=== PATIENT | male | born 1955 | race Caucasian/White ===

== ENCOUNTER 2018-02-15 11:13 | Inpatient (IN) | payer OTHER ==
[~2018-02-15 11:13] MED LIST: ETOMIDATE 20 MG INJ; SUCCINYLCHOLINE CHLORIDE 100 MG/5 ML SYG IV
[2018-02-15] MEDS ORDERED: NORepinephrine 8MG/250 ML (PMX 250 ML (11:33)
[2018-02-15] MEDS ORDERED: PROPOFOL 100 ML (11:47)
[2018-02-15] MEDS: NORepinephrine 8MG/250 ML (PMX 250 ML IV (12:00)
[2018-02-15 12:11] LABS: ADD MAN DIFF? NO
[2018-02-15] MEDS: SODIUM CHLORIDE 0.9% 1L BAG IV* (12:17)
[2018-02-15 12:18] LABS: ABNORMAL IP MESSAGE 1; BASOPHILS % 0.1 % (0.0-2.0); EOSINOPHILS # 0.1 10^3/ul (0.0-0.5); EOSINOPHILS % 0.7 % (0.0-7.0); HEMATOCRIT 20.4 % (42.0-52.0); MEAN CORPUSCULAR HEMOGLOBIN 30.2 pg (29.0-33.0); MEAN CORPUSCULAR HGB CONC 29.9 g/dl (32.0-37.0); MEAN PLATELET VOLUME 10.4 fl (7.4-10.4); MONOCYTE # 0.3 10^3/ul (0.3-0.9); MONOCYTES % 3.7 % (0.0-11.0); NEUTROPHIL # 6.2 10^3/ul (1.6-7.5); NEUTROPHILS % 72.1 % (39.0-77.0); PLATELET COUNT 136 10^3/UL (140-415); POSITIVE DIFF @See below; RED BLOOD COUNT 2.02 10^6/ul (4.70-6.10); RED CELL DISTRIBUTION WIDTH 15.9 % (11.5-14.5)
[2018-02-15 12:18] LABS: WHITE BLOOD COUNT 8.6 10^3/ul (4.8-10.8)
[2018-02-15 12:22] LABS: ADD UMIC YES; UR ASCORBIC ACID NEGATIVE (NEGATIVE); UR BILIRUBIN (Dip) NEGATIVE (NEGATIVE); UR BLOOD (Dip) NEGATIVE (NEGATIVE); UR CLARITY CLEAR (CLEAR); UR COLOR STRAW (YELLOW); UR GLUCOSE (Dip) 1+ mg/dL (NEGATIVE); UR KETONES (Dip) NEGATIVE (NEGATIVE); UR LEUKOCYTE ESTERASE (Dip) NEGATIVE Leu/ul (NEGATIVE); UR NITRITE (Dip) NEGATIVE (NEGATIVE); UR RBC 1 /HPF (0-5); UR SPECIFIC GRAVITY (Dip) 1.012 (1.003-1.030); UR TOTAL PROTEIN (Dip) 2+ mg/dl (NEGATIVE); UR UROBILINOGEN (Dip) NEGATIVE (NEGATIVE); UR WBC 1 /HPF (0-5)
[2018-02-15] MEDS: LEVOFLOXACIN 750MG/D5W (PMX) 150 ML IVPB (12:22)
[2018-02-15 12:30] LABS: HEMOGLOBIN 6.1 g/dl (14.0-18.0); PATH REVIEW? YES
[2018-02-15 12:32] LABS: ALANINE AMINOTRANSFERASE 25 IU/L (13-69); ALBUMIN 3.3 g/dl (3.3-4.9); ALBUMIN/GLOBULIN RATIO 0.66; ALKALINE PHOSPHATASE 113 IU/L (42-121); AMYLASE 63 U/L (11-123); ANION GAP 22 (8-16); ASPARTATE AMINO TRANSFERASE 24 IU/L (15-46); BILIRUBIN,INDIRECT 0.1 mg/dl (0-1.1); BILIRUBIN,TOTAL 0.1 mg/dl (0.2-1.3); BLOOD UREA NITROGEN 67 mg/dl (7-20); CALCIUM 12.8 mg/dl (8.4-10.2); CARBON DIOXIDE 15 mmol/L (21-31); CHLORIDE 118 mmol/L (97-110); CREATININE 4.85 mg/dl (0.61-1.24); GLUCOSE 209 mg/dl (70-220); LIPASE 28 U/L (23-300); SODIUM 149 mmol/L (135-144); TOTAL PROTEIN 8.3 g/dl (6.1-8.1)
[2018-02-15] MEDS: LORAZEPAM 2 MG INJ IV (12:32)
[2018-02-15 12:33] LABS: INR 1.72; PROTIME 20.5 Sec (11.9-14.9); PT RATIO 1.6
[2018-02-15] MEDS: PROPOFOL 100 ML IV ×2 (12:33→23:11)
[2018-02-15 12:42] LABS: AADO2 Arterial 234.7 mmHg (7.0-24.0); Allen Test ACCEPTAB; Arterial Base Excess -8.1 mmol/L (-3.0-3); Arterial Blood Gas Oxygen Sat 95.6 mmHG (95.0-98.0); Arterial COHb 0.2 % (0.0-3.0); Arterial Fraction of Oxyhgb 94.8 % (93.0-99.0); Arterial MetHb 0.6 % (0.0-1.5); Arterial Total Hemglobin 7.5 g/dl (12.0-18.0); Arterial pCO2 27.2 mmhg (35-45); MODE VENT - AC; Site Left Radial
[2018-02-15 12:43] LABS: TROPONIN-I < 0.010 ng/ml (0.000-0.120)
[2018-02-15 13:00] LABS: LACTIC ACID 6.4 mmol/L (0.5-2.0)
[2018-02-15] MEDS: ALBUTEROL 0.5% (NEB) 2.5 MG/0.5 ML AMP INH (14:07)
[2018-02-15] MEDS: VANCOMYCIN 1 GM (PMX) 250 ML IVPB (14:08)
[2018-02-15] MEDS: FUROSEMIDE 40 MG INJ IV (14:08)
[2018-02-15] MEDS: CA CHLORIDE 10% 10 ML SYRINGE IV (14:08)
[2018-02-15] MEDS: NA BICARBONATE 8.4% 50 ML SYG IV (14:09)
[2018-02-15] MEDS: MIDAZOLAM (DRIP) 50 mg/50 mL 50 ML IV (14:33)
[2018-02-15 14:47] LABS: LACTIC ACID 1.5 mmol/L (0.5-2.0)
[2018-02-15] MEDS ORDERED: DOCUSATE SODIUM 100 MG CAP PO (15:30)
[2018-02-15] MEDS ORDERED: ONDANSETRON 4 MG INJ IV (15:30)
[2018-02-15] MEDS ORDERED: MAGNESIUM HYDROXIDE 30ML CUP PO (15:30)
[2018-02-15] MEDS: NA POLYST SULFON 15 GM/60 ML BTL PO (15:57)
[2018-02-15] MEDS: INSULIN REGULAR, HUMAN 100 UNIT/1 ML 3ML VIAL IVP (16:36)
[2018-02-15] MEDS: DEXTROSE 50% 50 ML SYRINGE IV (16:37)
[2018-02-15] MEDS: AZTREONAM 0.5 GM in SOD CHLORIDE 0.9% 50 ML IV (16:43)
[2018-02-15 16:58] LABS: IMMEDIATE SPIN CROSSMATCH 1
[2018-02-15] MEDS ORDERED: GLUCOSE GEL 15 GRAM TUBE BUCCAL (18:00)
[2018-02-15] MEDS ORDERED: GLUCAGON 1 MG INJ IM (18:00)
[2018-02-15] MEDS ORDERED: GLUCOSE GEL 15 GRAM TUBE PO ×2 (18:00)
[2018-02-15] MEDS ORDERED: INSULIN ASPART [NOVOLOG] 3 ML PEN SC (18:00)
[2018-02-15 18:01] LABS: LACTIC ACID 4.9 mmol/L (0.5-2.0)
[2018-02-15] MEDS: NA POLYST SULFON 15 GM/60 ML BTL PR (18:03)
[2018-02-15 18:19] LABS: POTASSIUM,URINE RANDOM 54.3 mmol/L (25-125)
[2018-02-15 18:19] LABS: SODIUM,URINE RANDOM 45 mmol/L (30-90)
[2018-02-15 18:36] LABS: ADD UMIC YES; UR ASCORBIC ACID NEGATIVE (NEGATIVE); UR BILIRUBIN (Dip) NEGATIVE (NEGATIVE); UR BLOOD (Dip) 2+ mg/dL (NEGATIVE); UR CLARITY CLEAR (CLEAR); UR COLOR STRAW (YELLOW); UR GLUCOSE (Dip) 1+ mg/dL (NEGATIVE); UR KETONES (Dip) NEGATIVE (NEGATIVE); UR LEUKOCYTE ESTERASE (Dip) NEGATIVE Leu/ul (NEGATIVE); UR NITRITE (Dip) NEGATIVE (NEGATIVE); UR RBC 0 /HPF (0-5); UR SPECIFIC GRAVITY (Dip) 1.009 (1.003-1.030); UR TOTAL PROTEIN (Dip) 1+ mg/dl (NEGATIVE); UR UROBILINOGEN (Dip) NEGATIVE (NEGATIVE); UR WBC 5 /HPF (0-5)
[2018-02-15 18:45] LABS: ANION GAP 15 (8-16); BLOOD UREA NITROGEN 61 mg/dl (7-20); CALCIUM 12.3 mg/dl (8.4-10.2); CARBON DIOXIDE 17 mmol/L (21-31); CHLORIDE 121 mmol/L (97-110); CREATININE 4.17 mg/dl (0.61-1.24); GLUCOSE 318 mg/dl (70-220); SODIUM 149 mmol/L (135-144)
[2018-02-15 18:46] LABS: CREATININE,URINE RANDOM 14.47 mg/dl (20-370)
[2018-02-15 19:04] LABS: WHITE BLOOD COUNT 6.7 10^3/ul (4.8-10.8)
[2018-02-15 19:04] LABS: HEMATOCRIT 24.5 % (42.0-52.0); HEMOGLOBIN 7.7 g/dl (14.0-18.0); MEAN CORPUSCULAR HEMOGLOBIN 30.9 pg (29.0-33.0); MEAN CORPUSCULAR HGB CONC 31.4 g/dl (32.0-37.0); MEAN CORPUSCULAR VOLUME 98.4 fl (82.0-101.0); MEAN PLATELET VOLUME 10.4 fl (7.4-10.4); PLATELET COUNT 106 10^3/UL (140-415); POSITIVE DIFF @See below; RED BLOOD COUNT 2.49 10^6/ul (4.70-6.10); RED CELL DISTRIBUTION WIDTH 16.3 % (11.5-14.5)
[2018-02-15 19:08] LABS: ADD MAN DIFF? YES
[2018-02-15 19:13] LABS: IMMEDIATE SPIN CROSSMATCH 1 3
[2018-02-15 19:46] LABS: ANISOCYTOSIS 2+ (0-0); BAND NEUTROPHILS % (M) 16 % (0-4); GIANT THROMBO% (M) 1 % (0-0); LYMPHOCYTES #M 0.6 10^3/ul (0.8-2.9); LYMPHOCYTES % (M) 9 % (15-51); MICROCYTOSIS 1+ (0-0); MONOCYTES % (M) 1 % (0-11); PLATELET ESTIMATE DECREASED; POIKILOCYTOSIS 3+ (0-0); POLYCHROMASIA 3+ (0-0); SEG NEUT #M 5.1 10^3/ul (1.6-7.5); SEGMENTED NEUTROPHILS (M) % 75 % (39-77); SMUDGE%M 11 % (0-0)
[2018-02-15] MEDS: ATORVASTATIN 80 MG TAB PO (20:07)
[2018-02-15 20:51] LABS: OSMOLALITY,URINE 295 mOsm/kg (250-1200)
[2018-02-15] MEDS ORDERED: INSULIN LISPRO 12 UNIT SQ (21:00)
[2018-02-15] MEDS: INSULIN ASPART [NOVOLOG] 3 ML PEN SC (21:32)
[2018-02-15] MEDS ORDERED: AZTREONAM 2 GM in SOD CHLORIDE 0.9% 100 ML IVPB (22:00)
[2018-02-16] MEDS: MIDAZOLAM (DRIP) 50 mg/50 mL 50 ML IV ×2 (01:38→22:13)
[2018-02-16] MEDS: AZTREONAM 0.5 GM in SOD CHLORIDE 0.9% 50 ML IV ×3 (01:39→09:04)
[2018-02-16] MEDS: INSULIN ASPART [NOVOLOG] 3 ML PEN SC ×6 (01:43→21:00)
[2018-02-16 05:56] LABS: AADO2 Arterial 260.1 mmHg (7.0-24.0); Allen Test ACCEPTAB; Arterial Base Excess -4.4 mmol/L (-3.0-3); Arterial Blood Gas Oxygen Sat 91.2 mmHG (95.0-98.0); Arterial COHb 0.2 % (0.0-3.0); Arterial Fraction of Oxyhgb 90.7 % (93.0-99.0); Arterial HCO3 19.4 mmol/L (22.0-26.0); Arterial MetHb 0.4 % (0.0-1.5); Arterial Total Hemglobin 10.6 g/dl (12.0-18.0); Arterial pCO2 31.6 mmhg (35-45); MODE VENT - AC; Site Right Radial
[2018-02-16 05:57] LABS: ADD MAN DIFF? NO
[2018-02-16 06:03] LABS: ABNORMAL IP MESSAGE 1; BASOPHILS % 0.2 % (0.0-2.0); EOSINOPHILS % 0.7 % (0.0-7.0); HEMATOCRIT 24.6 % (42.0-52.0); HEMOGLOBIN 7.7 g/dl (14.0-18.0); LYMPHOCYTES # 0.4 10^3/ul (0.8-2.9); LYMPHOCYTES % 7.4 % (15.0-51.0); MEAN CORPUSCULAR HEMOGLOBIN 29.7 pg (29.0-33.0); MEAN CORPUSCULAR HGB CONC 31.3 g/dl (32.0-37.0); MEAN PLATELET VOLUME 10.1 fl (7.4-10.4); MONOCYTE # 0.2 10^3/ul (0.3-0.9); MONOCYTES % 3.9 % (0.0-11.0); NEUTROPHILS % 87.3 % (39.0-77.0); PLATELET COUNT 108 10^3/UL (140-415); POSITIVE DIFF @See below; RED BLOOD COUNT 2.59 10^6/ul (4.70-6.10); RED CELL DISTRIBUTION WIDTH 17.2 % (11.5-14.5)
[2018-02-16 06:03] LABS: WHITE BLOOD COUNT 5.7 10^3/ul (4.8-10.8)
[2018-02-16] MEDS: PROPOFOL 100 ML IV (06:16)
[2018-02-16 06:39] LABS: ALANINE AMINOTRANSFERASE 18 IU/L (13-69); ALBUMIN 3.1 g/dl (3.3-4.9); ALBUMIN/GLOBULIN RATIO 0.68; ALKALINE PHOSPHATASE 90 IU/L (42-121); ANION GAP 11 (8-16); ASPARTATE AMINO TRANSFERASE 52 IU/L (15-46); CALCIUM 12.7 mg/dl (8.4-10.2); CARBON DIOXIDE 22 mmol/L (21-31); CHLORIDE 126 mmol/L (97-110); CREATININE 4.15 mg/dl (0.61-1.24); GLUCOSE 128 mg/dl (70-220); MAGNESIUM 2.4 mg/dl (1.7-2.5); POTASSIUM 4.4 mmol/L (3.5-5.1); SODIUM 155 mmol/L (135-144); TOTAL PROTEIN 7.6 g/dl (6.1-8.1)
[2018-02-16] MEDS: PANTOPRAZOLE 40 MG INJ IV (06:49)
[2018-02-16 06:59] LABS: LACTATE DEHYDROGENASE 466 IU/L (313-618)
[2018-02-16 07:34] LABS: BLOOD UREA NITROGEN 58 mg/dl (7-20)
[2018-02-16 08:19] LABS: C-REACTIVE PROTEIN 47.4 mg/dl (0.0-0.9)
[2018-02-16] MEDS: SOD CHLORIDE 0.45% 1,000 ML IV (09:00)
[2018-02-16] MEDS: ASPIRIN 81 MG TAB PO (09:00)
[2018-02-16] MEDS: INSULIN GLARGINE [LANTus] (100 UNITS/ML) SYG SC (09:00)
[2018-02-16] MEDS: DEXTROSE 5% 1,000 ML IV (10:35)
[2018-02-16] MEDS: SOD CHLORIDE 0.9% 1,000 ML IV ×2 (10:35→10:53)
[2018-02-16 10:49] LABS: PHOSPHORUS 9.4 mg/dl (2.5-4.9)
[2018-02-16 13:23] LABS: ANION GAP 13 (8-16); BLOOD UREA NITROGEN 58 mg/dl (7-20); CALCIUM 11.8 mg/dl (8.4-10.2); CARBON DIOXIDE 20 mmol/L (21-31); CHLORIDE 125 mmol/L (97-110); CREATININE 4.03 mg/dl (0.61-1.24); GLUCOSE 90 mg/dl (70-220); POTASSIUM 5.1 mmol/L (3.5-5.1); SODIUM 153 mmol/L (135-144)
[2018-02-16 15:01] LABS: CREATININE, RANDOM URINE 19 mg/dL (20-370); MICROALBUMIN 9.7 mg/dL; MICROALBUMIN/CREATININE RATIO 511 (<30)
[2018-02-16] MEDS ORDERED: PENDING SANTYL ORDER FOR WOUND CARE XX (15:30)
[2018-02-16] MEDS: TAMSULOSIN (SR) 0.4 MG CAP PO (21:24)
[2018-02-16] MEDS: ATORVASTATIN 80 MG TAB PO (21:24)
[2018-02-16] MEDS: DEXTROSE 5%-0.45% NACL 1,000 ML IV (21:56)
[2018-02-17] MEDS: INSULIN ASPART [NOVOLOG] 3 ML PEN SC ×6 (01:00→21:00)
[2018-02-17 04:22] LABS: PROTEIN, TOTAL 6.9 g/dL (6.1-8.1)
[2018-02-17] MEDS: ACETAMINOPHEN 650 MG SUPP PR ×2 (04:30→22:08)
[2018-02-17 05:24] LABS: ADD MAN DIFF? NO
[2018-02-17 05:32] LABS: ABNORMAL IP MESSAGE 1; BASOPHILS % 0.2 % (0.0-2.0); EOSINOPHILS # 0.1 10^3/ul (0.0-0.5); EOSINOPHILS % 1.3 % (0.0-7.0); HEMATOCRIT 25.2 % (42.0-52.0); HEMOGLOBIN 7.8 g/dl (14.0-18.0); LYMPHOCYTES # 0.4 10^3/ul (0.8-2.9); MEAN CORPUSCULAR HEMOGLOBIN 30.1 pg (29.0-33.0); MEAN CORPUSCULAR VOLUME 97.3 fl (82.0-101.0); MEAN PLATELET VOLUME 10.4 fl (7.4-10.4); MONOCYTE # 0.2 10^3/ul (0.3-0.9); MONOCYTES % 2.5 % (0.0-11.0); NEUTROPHIL # 5.4 10^3/ul (1.6-7.5); NEUTROPHILS % 86.3 % (39.0-77.0); PLATELET COUNT 100 10^3/UL (140-415); POSITIVE DIFF @See below; RED BLOOD COUNT 2.59 10^6/ul (4.70-6.10); RED CELL DISTRIBUTION WIDTH 17.2 % (11.5-14.5)
[2018-02-17 05:32] LABS: WHITE BLOOD COUNT 6.3 10^3/ul (4.8-10.8)
[2018-02-17 05:50] LABS: LACTIC ACID 1.3 mmol/L (0.5-2.0)
[2018-02-17 06:14] LABS: ALANINE AMINOTRANSFERASE 22 IU/L (13-69); ALBUMIN 2.6 g/dl (3.3-4.9); ALKALINE PHOSPHATASE 92 IU/L (42-121); ANION GAP 9 (8-16); ASPARTATE AMINO TRANSFERASE 60 IU/L (15-46); BLOOD UREA NITROGEN 55 mg/dl (7-20); CALCIUM 11.2 mg/dl (8.4-10.2); CARBON DIOXIDE 20 mmol/L (21-31); CHLORIDE 127 mmol/L (97-110); GLUCOSE 109 mg/dl (70-220); MAGNESIUM 2.1 mg/dl (1.7-2.5); POTASSIUM 4.2 mmol/L (3.5-5.1); SODIUM 152 mmol/L (135-144); TOTAL PROTEIN 6.9 g/dl (6.1-8.1)
[2018-02-17] MEDS: DEXTROSE 5%-0.45% NACL 1,000 ML IV (06:18)
[2018-02-17 06:19] LABS: PHOSPHORUS 8.3 mg/dl (2.5-4.9)
[2018-02-17] MEDS: PANTOPRAZOLE 40 MG INJ IV (06:20)
[2018-02-17 08:32] LABS: AADO2 Arterial 335.4 mmHg (7.0-24.0); Arterial Base Excess -6.4 mmol/L (-3.0-3); Arterial Blood Gas Oxygen Sat 89.8 mmHG (95.0-98.0); Arterial COHb 0.3 % (0.0-3.0); Arterial Fraction of Oxyhgb 89.2 % (93.0-99.0); Arterial HCO3 17.7 mmol/L (22.0-26.0); Arterial MetHb 0.4 % (0.0-1.5); Arterial Total Hemglobin 8.2 g/dl (12.0-18.0); Arterial pCO2 29.7 mmhg (35-45); MODE VENT - AC; Site Right Brachial
[2018-02-17] MEDS: INSULIN GLARGINE [LANTus] (100 UNITS/ML) SYG SC (09:00)
[2018-02-17] MEDS: ASPIRIN 81 MG TAB PO (09:49)
[2018-02-17] MEDS: SOD CHLORIDE 0.9% 1,000 ML IV ×3 (10:28→23:59)
[2018-02-17] MEDS: AZTREONAM 0.5 GM in SOD CHLORIDE 0.9% 50 ML IV ×2 (10:57→21:14)
[2018-02-17] MEDS: LEVOFLOXACIN 500MG/D5W (PMX) 100 ML IVPB (14:05)
[2018-02-17 14:37] LABS: ANION GAP 13 (8-16); BLOOD UREA NITROGEN 53 mg/dl (7-20); CALCIUM 10.6 mg/dl (8.4-10.2); CARBON DIOXIDE 18 mmol/L (21-31); CHLORIDE 123 mmol/L (97-110); CREATININE 4.39 mg/dl (0.61-1.24); GLUCOSE 80 mg/dl (70-220); POTASSIUM 4.5 mmol/L (3.5-5.1); SODIUM 149 mmol/L (135-144)
[2018-02-17] MEDS ORDERED: COLLAGENASE 5 GM (UD JAR) TOP (16:00)
[2018-02-17 17:12] LABS: ALBUMIN 2.2 g/dL (3.8-4.8); ALPHA-1-GLOBULINS 0.5 g/dL (0.2-0.3); BETA 2 GLOBULINS 0.5 g/dL (0.2-0.5); BETA GLOBULINS 0.3 g/dL (0.4-0.6); GAMMA GLOBULINS 2.5 g/dL (0.8-1.7)
[2018-02-17] MEDS: ATORVASTATIN 80 MG TAB PO (21:08)
[2018-02-17] MEDS: TAMSULOSIN (SR) 0.4 MG CAP PO (21:08)
[2018-02-17] MEDS: PROPOFOL 100 ML IV (21:11)
[2018-02-17] MEDS: NORepinephrine 8MG/250 ML (PMX 250 ML IV (21:12)
[2018-02-17] MEDS: DEXTROSE 50% 50 ML SYRINGE IV (21:19)
[2018-02-17] MEDS: COLLAGENASE 5 GM (UD JAR) TOP (21:37)
[2018-02-18] MEDS: INSULIN ASPART [NOVOLOG] 3 ML PEN SC ×6 (01:00→20:55)
[2018-02-18] MEDS: MIDAZOLAM (DRIP) 50 mg/50 mL 50 ML IV (02:45)
[2018-02-18] MEDS: SOD CHLORIDE 0.9% 1,000 ML IV (03:04)
[2018-02-18] MEDS: ALBUMIN HUMAN 25% 100 ML IV ×2 (03:40→04:44)
[2018-02-18 04:25] LABS: ADD MAN DIFF? NO
[2018-02-18 04:29] LABS: ABNORMAL IP MESSAGE 1; BASOPHILS % 0.3 % (0.0-2.0); EOSINOPHILS # 0.1 10^3/ul (0.0-0.5); HEMATOCRIT 23.2 % (42.0-52.0); LYMPHOCYTES # 0.9 10^3/ul (0.8-2.9); LYMPHOCYTES % 12.6 % (15.0-51.0); MEAN CORPUSCULAR HEMOGLOBIN 30.3 pg (29.0-33.0); MEAN CORPUSCULAR HGB CONC 30.2 g/dl (32.0-37.0); MEAN CORPUSCULAR VOLUME 100.4 fl (82.0-101.0); MEAN PLATELET VOLUME 10.4 fl (7.4-10.4); MONOCYTE # 0.2 10^3/ul (0.3-0.9); MONOCYTES % 3.3 % (0.0-11.0); NEUTROPHILS % 82.3 % (39.0-77.0); PLATELET COUNT 92 10^3/UL (140-415); POSITIVE DIFF @See below; RED BLOOD COUNT 2.31 10^6/ul (4.70-6.10); RED CELL DISTRIBUTION WIDTH 17.7 % (11.5-14.5)
[2018-02-18 04:29] LABS: WHITE BLOOD COUNT 7.3 10^3/ul (4.8-10.8)
[2018-02-18 04:50] LABS: ALANINE AMINOTRANSFERASE 28 IU/L (13-69); ALBUMIN 2.3 g/dl (3.3-4.9); ALBUMIN/GLOBULIN RATIO 0.57; ALKALINE PHOSPHATASE 82 IU/L (42-121); ANION GAP 15 (8-16); ASPARTATE AMINO TRANSFERASE 68 IU/L (15-46); BILIRUBIN,INDIRECT 0.1 mg/dl (0-1.1); BILIRUBIN,TOTAL 0.1 mg/dl (0.2-1.3); BLOOD UREA NITROGEN 61 mg/dl (7-20); CALCIUM 9.7 mg/dl (8.4-10.2); CARBON DIOXIDE 15 mmol/L (21-31); CHLORIDE 124 mmol/L (97-110); CREATININE 4.92 mg/dl (0.61-1.24); GLUCOSE 69 mg/dl (70-220); MAGNESIUM 1.9 mg/dl (1.7-2.5); POTASSIUM 4.9 mmol/L (3.5-5.1); SODIUM 149 mmol/L (135-144); TOTAL PROTEIN 6.3 g/dl (6.1-8.1)
[2018-02-18] MEDS: PANTOPRAZOLE 40 MG INJ IV (06:31)
[2018-02-18] MEDS: DEXTROSE 5%-0.9% NACL 1,000 ML IV ×2 (07:02→20:54)
[2018-02-18] MEDS: ASPIRIN 81 MG TAB PO (07:56)
[2018-02-18] MEDS: COLLAGENASE 5 GM (UD JAR) TOP (07:56)
[2018-02-18 08:29] LABS: AADO2 Arterial 293.3 mmHg (7.0-24.0); Arterial Base Excess -10.4 mmol/L (-3.0-3); Arterial Blood Gas Oxygen Sat 96.9 mmHG (95.0-98.0); Arterial COHb 0 % (0.0-3.0); Arterial Fraction of Oxyhgb 96.7 % (93.0-99.0); Arterial MetHb 0.2 % (0.0-1.5); Arterial Total Hemglobin 8.5 g/dl (12.0-18.0); Arterial pCO2 30.9 mmhg (35-45); MODE VENT - AC; Site Right Brachial
[2018-02-18] MEDS: INSULIN GLARGINE [LANTus] (100 UNITS/ML) SYG SC (09:20)
[2018-02-18 11:09] LABS: HEMATOCRIT 27.1 % (42.0-52.0); HEMOGLOBIN 8.3 g/dl (14.0-18.0)
[2018-02-18] MEDS: CEFEPIME HCL 0.5 GM in SOD CHLORIDE 0.9% 50 ML IVPB (12:30)
[2018-02-18] MEDS ORDERED: VANCOMYCIN IV PER PHARMACY XX (15:30)
[2018-02-18] MEDS: VANCOMYCIN 1 GM 250 ML IVPB (16:48)
[2018-02-18] MEDS: ACETAMINOPHEN 650 MG SUPP PR (18:04)
[2018-02-18 18:22] LABS: PTH CALCIUM 9.7 mg/dL (8.6-10.3)
[2018-02-18 18:32] LABS: AADO2 Arterial 633.8 mmHg (7.0-24.0); Allen Test ACCEPTAB; Arterial Base Excess -12.6 mmol/L (-3.0-3); Arterial Blood Gas Oxygen Sat 69.4 mmHG (95.0-98.0); Arterial COHb 0.3 % (0.0-3.0); Arterial Fraction of Oxyhgb 68.7 % (93.0-99.0); Arterial HCO3 14.5 mmol/L (22.0-26.0); Arterial MetHb 0.7 % (0.0-1.5); Arterial pCO2 38.6 mmhg (35-45); MODE VENT - AC; Site Right Radial
[2018-02-18] MEDS ORDERED: NA BICARBONATE 8.4% 50 ML SYG (18:44)
[2018-02-18] MEDS: NA BICARBONATE 8.4% 50 ML SYG IV (19:47)
[2018-02-18] MEDS: TAMSULOSIN (SR) 0.4 MG CAP PO (20:54)
[2018-02-18] MEDS: FAMOTIDINE 20 MG TAB NGT (20:55)
[2018-02-18] MEDS: ATORVASTATIN 80 MG TAB PO (20:55)
[2018-02-19] MEDS: INSULIN ASPART [NOVOLOG] 3 ML PEN SC ×6 (01:00→21:34)
[2018-02-19 05:24] LABS: WHITE BLOOD COUNT 7.3 10^3/ul (4.8-10.8)
[2018-02-19 05:24] LABS: ABNORMAL IP MESSAGE 1; HEMATOCRIT 25.8 % (42.0-52.0); HEMOGLOBIN 7.8 g/dl (14.0-18.0); MEAN CORPUSCULAR HEMOGLOBIN 29.9 pg (29.0-33.0); MEAN CORPUSCULAR HGB CONC 30.2 g/dl (32.0-37.0); MEAN CORPUSCULAR VOLUME 98.9 fl (82.0-101.0); MEAN PLATELET VOLUME 10.6 fl (7.4-10.4); PLATELET COUNT 69 10^3/UL (140-415); POSITIVE DIFF @See below; RED BLOOD COUNT 2.61 10^6/ul (4.70-6.10); RED CELL DISTRIBUTION WIDTH 18.1 % (11.5-14.5)
[2018-02-19 05:46] LABS: ANION GAP 13 (8-16); BLOOD UREA NITROGEN 68 mg/dl (7-20); CALCIUM 8.7 mg/dl (8.4-10.2); CARBON DIOXIDE 17 mmol/L (21-31); CHLORIDE 122 mmol/L (97-110); CREATININE 5.72 mg/dl (0.61-1.24); GLUCOSE 137 mg/dl (70-220); MAGNESIUM 1.9 mg/dl (1.7-2.5); PHOSPHORUS 9.5 mg/dl (2.5-4.9); POTASSIUM 5.3 mmol/L (3.5-5.1); SODIUM 147 mmol/L (135-144)
[2018-02-19 05:54] LABS: IRON 20 ug/dl (35-150)
[2018-02-19 06:04] LABS: % IRON SATURATION 16 % SAT (22-52); TOTAL IRON BINDING CAPACITY 123 ug/dl (241-421)
[2018-02-19 07:14] LABS: BASOPHILS % 0.3 % (0.0-2.0); LYMPHOCYTES # 0.6 10^3/ul (0.8-2.9); LYMPHOCYTES % 8.7 % (15.0-51.0); MONOCYTE # 0.3 10^3/ul (0.3-0.9); MONOCYTES % 4.3 % (0.0-11.0)
[2018-02-19 07:22] LABS: RETICULOCYTE COUNT # 0.013 X10^6 (0.020-0.110); RETICULOCYTE COUNT % 0.5 % (0.5-1.5)
[2018-02-19 07:22] LABS: RETICULOCYTE RBC 2.66
[2018-02-19] MEDS: ACETAMINOPHEN 650 MG SUPP PR (07:37)
[2018-02-19] MEDS: CEFEPIME HCL 0.5 GM in SOD CHLORIDE 0.9% 50 ML IVPB (08:33)
[2018-02-19] MEDS: ASPIRIN 81 MG TAB PO (08:33)
[2018-02-19 08:41] LABS: LACTATE DEHYDROGENASE 454 IU/L (313-618)
[2018-02-19] MEDS: INSULIN GLARGINE [LANTus] (100 UNITS/ML) SYG SC (08:42)
[2018-02-19 08:46] LABS: AADO2 Arterial 619.7 mmHg (7.0-24.0); Allen Test ACCEPTAB; Arterial Base Excess -11.7 mmol/L (-3.0-3); Arterial Blood Gas Oxygen Sat 70.1 mmHG (95.0-98.0); Arterial COHb 0.2 % (0.0-3.0); Arterial Fraction of Oxyhgb 69.6 % (93.0-99.0); Arterial HCO3 16.8 mmol/L (22.0-26.0); Arterial MetHb 0.5 % (0.0-1.5); Arterial Total Hemglobin 8.4 g/dl (12.0-18.0); Arterial pCO2 51.1 mmhg (35-45); MODE VENT - AC; Site Right Radial
[2018-02-19] MEDS: COLLAGENASE 5 GM (UD JAR) TOP (08:50)
[2018-02-19] MEDS ORDERED: PHENYLephrine 20MG IN 250 ML 250 ML (08:51)
[2018-02-19 08:56] LABS: FOLATE > 20.0 ng/ml (2.8-20.0)
[2018-02-19] MEDS: SODIUM BICARBONATE (IV ADD) 150 MEQ in DEXTROSE 5% 1,000 ML IV ×3 (09:00→21:22)
[2018-02-19] MEDS: PHENYLephrine 40 MG in DEXTROSE 5% 496 ML IV (10:03)
[2018-02-19 10:32] LABS: NEUTROPHIL # 6.3 10^3/ul (1.6-7.5); NEUTROPHILS % 86.7 % (39.0-77.0)
[2018-02-19 10:54] LABS: HEPATITIS B SURFACE ANTIGEN NEGATIVE (NEGATIVE)
[2018-02-19 11:12] LABS: HEPATITIS B SURFACE ANTIBODY NEGATIVE (NEGATIVE)
[2018-02-19] MEDS: PHENYLephrine 80 MG in DEXTROSE 5% 242 ML IV ×3 (14:37→23:54)
[2018-02-19] MEDS: NORepinephrine 32 MG in DEXTROSE 5% 218 ML IV (14:38)
[2018-02-19] MEDS: VASOPRESSIN 60 UNIT in DEXTROSE 5% 57 ML IV (14:41)
[2018-02-19 15:55] LABS: AADO2 Arterial 421.8 mmHg (7.0-24.0); Allen Test ACCEPTAB; Arterial Blood Gas Oxygen Sat 99.2 mmHG (95.0-98.0); Arterial COHb 0.3 % (0.0-3.0); Arterial Fraction of Oxyhgb 98.4 % (93.0-99.0); Arterial HCO3 16.5 mmol/L (22.0-26.0); Arterial MetHb 0.5 % (0.0-1.5); Arterial Total Hemglobin 9.3 g/dl (12.0-18.0); Arterial pCO2 43.7 mmhg (35-45); MODE VENT - AC; Site Right Brachial
[2018-02-19] MEDS: ATORVASTATIN 80 MG TAB PO (21:22)
[2018-02-19] MEDS: FAMOTIDINE 20 MG TAB NGT (21:22)
[2018-02-19] MEDS: TAMSULOSIN (SR) 0.4 MG CAP PO (21:22)
[2018-02-20] MEDS: VASOPRESSIN 60 UNIT in DEXTROSE 5% 57 ML IV ×2 (00:30→11:38)
[2018-02-20] MEDS: INSULIN ASPART [NOVOLOG] 3 ML PEN SC ×6 (01:00→21:00)
[2018-02-20] MEDS: PHENYLephrine 80 MG in DEXTROSE 5% 242 ML IV ×4 (04:44→20:11)
[2018-02-20] MEDS: NORepinephrine 32 MG in DEXTROSE 5% 218 ML IV (05:10)
[2018-02-20 06:17] LABS: VANCOMYCIN,RANDOM 12.8 ug/ml
[2018-02-20 06:19] LABS: ANION GAP 15 (8-16); BLOOD UREA NITROGEN 47 mg/dl (7-20); CALCIUM 7.5 mg/dl (8.4-10.2); CARBON DIOXIDE 22 mmol/L (21-31); CHLORIDE 106 mmol/L (97-110); CREATININE 4.13 mg/dl (0.61-1.24); GLUCOSE 141 mg/dl (70-220); MAGNESIUM 1.6 mg/dl (1.7-2.5); PHOSPHORUS 6.6 mg/dl (2.5-4.9); SODIUM 139 mmol/L (135-144)
[2018-02-20] MEDS: SOD CHLORIDE 0.9% 1,000 ML IV ×2 (06:31→20:12)
[2018-02-20 06:55] LABS: ADD MAN DIFF? NO
[2018-02-20 06:57] LABS: ABNORMAL IP MESSAGE 1; BASOPHILS % 0.2 % (0.0-2.0); EOSINOPHILS # 0.1 10^3/ul (0.0-0.5); EOSINOPHILS % 1.2 % (0.0-7.0); HEMATOCRIT 26.8 % (42.0-52.0); HEMOGLOBIN 8.3 g/dl (14.0-18.0); LYMPHOCYTES # 0.3 10^3/ul (0.8-2.9); LYMPHOCYTES % 5.5 % (15.0-51.0); MEAN CORPUSCULAR HEMOGLOBIN 29.6 pg (29.0-33.0); MEAN CORPUSCULAR VOLUME 95.7 fl (82.0-101.0); MEAN PLATELET VOLUME 10.8 fl (7.4-10.4); MONOCYTE # 0.2 10^3/ul (0.3-0.9); MONOCYTES % 4.3 % (0.0-11.0); NEUTROPHIL # 4.4 10^3/ul (1.6-7.5); NEUTROPHILS % 87.4 % (39.0-77.0); POSITIVE DIFF @See below; RED CELL DISTRIBUTION WIDTH 17.5 % (11.5-14.5)
[2018-02-20 06:57] LABS: WHITE BLOOD COUNT 5.1 10^3/ul (4.8-10.8)
[2018-02-20 07:19] LABS: PLATELET COUNT 51 10^3/UL (140-415)
[2018-02-20] MEDS: MAGNESIUM SULFATE 2 GM/50 ML 50 ML IVPB (07:45)
[2018-02-20] MEDS: ASPIRIN 81 MG TAB PO (08:23)
[2018-02-20] MEDS: COLLAGENASE 5 GM (UD JAR) TOP (08:23)
[2018-02-20] MEDS: INSULIN GLARGINE [LANTus] (100 UNITS/ML) SYG SC (08:25)
[2018-02-20 08:44] LABS: AADO2 Arterial 589.9 mmHg (7.0-24.0); Allen Test ACCEPTAB; Arterial Base Excess -4.3 mmol/L (-3.0-3); Arterial Blood Gas Oxygen Sat 96.1 mmHG (95.0-98.0); Arterial COHb 0.3 % (0.0-3.0); Arterial Fraction of Oxyhgb 95.6 % (93.0-99.0); Arterial HCO3 20.8 mmol/L (22.0-26.0); Arterial MetHb 0.2 % (0.0-1.5); Arterial pCO2 37.9 mmhg (35-45); MODE VENT - AC; Site Right Radial
[2018-02-20] MEDS: CEFEPIME HCL 0.5 GM in SOD CHLORIDE 0.9% 50 ML IVPB (09:21)
[2018-02-20] MEDS: HEPARIN 1000 UNITS/ML 10 ML INJ CATHETER (13:17)
[2018-02-20] MEDS: VANCOMYCIN 1 GM 250 ML IVPB (14:18)
[2018-02-20] MEDS: DEXTROSE 50% 50 ML SYRINGE IV ×3 (14:22→21:10)
[2018-02-20] MEDS ORDERED: DIGOXIN 500 MCG INJ IV (16:30)
[2018-02-20 20:09] LABS: PRETRANSFUSION BILIRUBIN 0.1 mg/dl
[2018-02-20 20:10] LABS: POST-TRANSFUSION BILIRUBIN 0.5 mg/dl
[2018-02-20] MEDS: TAMSULOSIN (SR) 0.4 MG CAP PO (21:12)
[2018-02-20] MEDS: ATORVASTATIN 80 MG TAB PO (21:12)
[2018-02-20] MEDS: FAMOTIDINE 20 MG TAB NGT (21:12)
[2018-02-21] MEDS: PHENYLephrine 160 MG in DEXTROSE 5% 484 ML IV ×3 (00:09→17:50)
[2018-02-21] MEDS: VASOPRESSIN 60 UNIT in DEXTROSE 5% 57 ML IV ×3 (00:54→23:56)
[2018-02-21] MEDS: DEXTROSE 50% 50 ML SYRINGE IV (00:55)
[2018-02-21] MEDS: INSULIN ASPART [NOVOLOG] 3 ML PEN SC ×6 (01:00→20:47)
[2018-02-21] MEDS: DEXTROSE 5%-0.45% NACL 1,000 ML IV (02:42)
[2018-02-21] MEDS: NORepinephrine 32 MG in DEXTROSE 5% 218 ML IV ×2 (03:53→23:48)
[2018-02-21 05:36] LABS: WHITE BLOOD COUNT 8.1 10^3/ul (4.8-10.8)
[2018-02-21 05:36] LABS: ABNORMAL IP MESSAGE 1; HEMATOCRIT 26.7 % (42.0-52.0); HEMOGLOBIN 8.2 g/dl (14.0-18.0); MEAN CORPUSCULAR HEMOGLOBIN 29.6 pg (29.0-33.0); MEAN CORPUSCULAR HGB CONC 30.7 g/dl (32.0-37.0); MEAN CORPUSCULAR VOLUME 96.4 fl (82.0-101.0); MEAN PLATELET VOLUME 10.8 fl (7.4-10.4); PLATELET COUNT 39 10^3/UL (140-415); POSITIVE DIFF @See below; RED BLOOD COUNT 2.77 10^6/ul (4.70-6.10); RED CELL DISTRIBUTION WIDTH 17.2 % (11.5-14.5)
[2018-02-21 05:50] LABS: ADD MAN DIFF? YES
[2018-02-21 06:07] LABS: ANION GAP 13 (8-16); BLOOD UREA NITROGEN 42 mg/dl (7-20); CARBON DIOXIDE 21 mmol/L (21-31); CHLORIDE 104 mmol/L (97-110); CREATININE 3.79 mg/dl (0.61-1.24); GLUCOSE 134 mg/dl (70-220); MAGNESIUM 2.1 mg/dl (1.7-2.5); POTASSIUM 4.5 mmol/L (3.5-5.1); SODIUM 133 mmol/L (135-144)
[2018-02-21] MEDS ORDERED: DEXTROSE 50% 50 ML SYRINGE (07:00)
[2018-02-21 08:03] LABS: BAND NEUTROPHILS #M 2.7 10^3/ul (0.0-0.6); BAND NEUTROPHILS % (M) 34 % (0-4); EOSINOPHILS % (M) 3 % (0-7); LYMPHOCYTES #M 0.2 10^3/ul (0.8-2.9); LYMPHOCYTES % (M) 3 % (15-51); MONOCYTES % (M) 1 % (0-11); PLATELET ESTIMATE SIG DECREASED; POIKILOCYTOSIS 1+ (0-0); POLYCHROMASIA 2+ (0-0); SEGMENTED NEUTROPHILS (M) % 59 % (39-77); SMUDGE%M 2 % (0-0)
[2018-02-21] MEDS: ASPIRIN 81 MG TAB PO (08:34)
[2018-02-21] MEDS: COLLAGENASE 5 GM (UD JAR) TOP (08:34)
[2018-02-21] MEDS: CEFEPIME HCL 0.5 GM in SOD CHLORIDE 0.9% 50 ML IVPB (08:35)
[2018-02-21] MEDS: INSULIN GLARGINE [LANTus] (100 UNITS/ML) SYG SC (08:42)
[2018-02-21] MEDS: SOD CHLORIDE 0.9% 1,000 ML IV ×3 (08:42→22:30)
[2018-02-21 11:52] LABS: Arterial Base Excess -7.3 mmol/L (-3.0-3); Arterial Blood Gas Oxygen Sat 85.8 mmHG (95.0-98.0); Arterial COHb 0.1 % (0.0-3.0); Arterial Fraction of Oxyhgb 85.3 % (93.0-99.0); Arterial HCO3 19.8 mmol/L (22.0-26.0); Arterial MetHb 0.5 % (0.0-1.5); Arterial Total Hemglobin 12.3 g/dl (12.0-18.0); Arterial pCO2 46.1 mmhg (35-45); MODE VENT - AC; Site Right Brachial
[2018-02-21] MEDS: ACETYLCYSTEINE 20% 4 ML VIAL NEB ×2 (13:28→19:23)
[2018-02-21] MEDS: ALBUTEROL HFA 8 GM INHALER INH ×2 (13:37→19:24)
[2018-02-21 14:21] LABS: PTH INTACT 19 pg/mL (14-64)
[2018-02-21] MEDS: ATORVASTATIN 80 MG TAB PO (20:23)
[2018-02-21] MEDS: TAMSULOSIN (SR) 0.4 MG CAP PO (20:23)
[2018-02-21] MEDS: FAMOTIDINE 20 MG TAB NGT (20:23)
[2018-02-21] MEDS: SOD CHLORIDE 0.9% 250 ML IV* (21:59)
[2018-02-22] MEDS: INSULIN ASPART [NOVOLOG] 3 ML PEN SC ×6 (01:00→20:53)
[2018-02-22] MEDS: ACETYLCYSTEINE 20% 4 ML VIAL NEB ×4 (02:37→19:01)
[2018-02-22] MEDS: ALBUTEROL HFA 8 GM INHALER INH ×4 (02:38→19:02)
[2018-02-22] MEDS: SOD CHLORIDE 0.9% 1,000 ML IV ×2 (03:04→20:00)
[2018-02-22] MEDS: PHENYLephrine 160 MG in DEXTROSE 5% 484 ML IV ×3 (03:08→21:24)
[2018-02-22 06:33] LABS: ADD MAN DIFF? NO
[2018-02-22 06:43] LABS: ABNORMAL IP MESSAGE 1; BASOPHILS % 0.1 % (0.0-2.0); EOSINOPHILS # 0.1 10^3/ul (0.0-0.5); EOSINOPHILS % 0.8 % (0.0-7.0); HEMATOCRIT 23.5 % (42.0-52.0); HEMOGLOBIN 7.4 g/dl (14.0-18.0); LYMPHOCYTES # 0.2 10^3/ul (0.8-2.9); LYMPHOCYTES % 3.3 % (15.0-51.0); MEAN CORPUSCULAR HEMOGLOBIN 29.7 pg (29.0-33.0); MEAN CORPUSCULAR HGB CONC 31.5 g/dl (32.0-37.0); MEAN CORPUSCULAR VOLUME 94.4 fl (82.0-101.0); MEAN PLATELET VOLUME 9.8 fl (7.4-10.4); MONOCYTE # 0.2 10^3/ul (0.3-0.9); MONOCYTES % 3.1 % (0.0-11.0); NEUTROPHIL # 6.8 10^3/ul (1.6-7.5); PLATELET COUNT 59 10^3/UL (140-415); POSITIVE DIFF @See below; RED BLOOD COUNT 2.49 10^6/ul (4.70-6.10); RED CELL DISTRIBUTION WIDTH 17.2 % (11.5-14.5)
[2018-02-22 06:43] LABS: WHITE BLOOD COUNT 7.4 10^3/ul (4.8-10.8)
[2018-02-22 07:16] LABS: ANION GAP 17 (8-16); BLOOD UREA NITROGEN 46 mg/dl (7-20); CALCIUM 6.5 mg/dl (8.4-10.2); CARBON DIOXIDE 19 mmol/L (21-31); CHLORIDE 97 mmol/L (97-110); GLUCOSE 125 mg/dl (70-220); POTASSIUM 4.7 mmol/L (3.5-5.1); SODIUM 128 mmol/L (135-144)
[2018-02-22 07:40] LABS: NEUTROPHILS % 91.6 % (39.0-77.0)
[2018-02-22 08:22] LABS: PHOSPHORUS 6.7 mg/dl (2.5-4.9)
[2018-02-22 08:33] LABS: CREATININE 3.67 mg/dl (0.61-1.24)
[2018-02-22 09:04] LABS: AADO2 Arterial 584.7 mmHg (7.0-24.0); Allen Test ACCEPTAB; Arterial Base Excess -6.1 mmol/L (-3.0-3); Arterial Blood Gas Oxygen Sat 96.1 mmHG (95.0-98.0); Arterial COHb 0.3 % (0.0-3.0); Arterial Fraction of Oxyhgb 95.6 % (93.0-99.0); Arterial HCO3 19.7 mmol/L (22.0-26.0); Arterial MetHb 0.2 % (0.0-1.5); Arterial Total Hemglobin 8.4 g/dl (12.0-18.0); Arterial pCO2 40.3 mmhg (35-45); MODE VENT - AC; Site Right Radial
[2018-02-22] MEDS: ASPIRIN 81 MG TAB PO (09:37)
[2018-02-22] MEDS: CEFEPIME HCL 0.5 GM in SOD CHLORIDE 0.9% 50 ML IVPB (09:37)
[2018-02-22] MEDS: COLLAGENASE 5 GM (UD JAR) TOP (09:49)
[2018-02-22 10:38] LABS: ANISOCYTOSIS 1+ (0-0); BAND NEUTROPHILS #M 0.8 10^3/ul (0.0-0.6); BAND NEUTROPHILS % (M) 11 % (0-4); BASOPHILS % (M) 1 % (0-2); EOSINOPHILS % (M) 2 % (0-7); LYMPHOCYTES % (M) 1 % (15-51); MONOCYTE #M 0.2 10^3/ul (0.3-0.9); MONOCYTES % (M) 3 % (0-11); PLATELET ESTIMATE DECREASED; POIKILOCYTOSIS 1+ (0-0); SEG NEUT #M 6.1 10^3/ul (1.6-7.5); SEGMENTED NEUTROPHILS (M) % 82 % (39-77); SMUDGE%M 3 % (0-0)
[2018-02-22] MEDS ORDERED: ALBUMIN HUMAN 25% 100 ML IV ×2 (11:30→12:00)
[2018-02-22] MEDS: ALTEPLASE (CATHFLO) 2 MG INJ CATHETER (13:00)
[2018-02-22] MEDS: INSULIN GLARGINE [LANTus] (100 UNITS/ML) SYG SC (13:08)
[2018-02-22] MEDS: ALBUMIN HUMAN 25% 100 ML IV (14:45)
[2018-02-22 15:16] LABS: HAPTOGLOBIN 328 mg/dL (43-212)
[2018-02-22] MEDS: VASOPRESSIN 60 UNIT in DEXTROSE 5% 57 ML IV (15:43)
[2018-02-22] MEDS: BALSAM PERU/CASTOR OIL 60 GM TUBE TOP ×2 (16:29→20:53)
[2018-02-22] MEDS: SILVER SULFADIAZINE 1% 25 GM CR TOP (16:30)
[2018-02-22] MEDS: NORepinephrine 32 MG in DEXTROSE 5% 218 ML IV (17:53)
[2018-02-22] MEDS: ATORVASTATIN 80 MG TAB PO (20:52)
[2018-02-22] MEDS: FAMOTIDINE 20 MG TAB NGT (20:53)
[2018-02-22] MEDS: TAMSULOSIN (SR) 0.4 MG CAP PO (20:53)
[2018-02-23] MEDS: VASOPRESSIN 60 UNIT in DEXTROSE 5% 57 ML IV ×2 (00:30→12:30)
[2018-02-23] MEDS: INSULIN ASPART [NOVOLOG] 3 ML PEN SC ×6 (00:34→21:00)
[2018-02-23] MEDS: ALBUTEROL HFA 8 GM INHALER INH ×4 (01:00→19:30)
[2018-02-23] MEDS: ACETYLCYSTEINE 20% 4 ML VIAL NEB ×4 (01:00→19:31)
[2018-02-23] MEDS: SOD CHLORIDE 0.9% 1,000 ML IV ×2 (01:10→06:16)
[2018-02-23 05:47] LABS: ABNORMAL IP MESSAGE 1; HEMATOCRIT 22.8 % (42.0-52.0); HEMOGLOBIN 7.4 g/dl (14.0-18.0); MEAN CORPUSCULAR HEMOGLOBIN 30.3 pg (29.0-33.0); MEAN CORPUSCULAR HGB CONC 32.5 g/dl (32.0-37.0); MEAN CORPUSCULAR VOLUME 93.4 fl (82.0-101.0); MEAN PLATELET VOLUME 9.8 fl (7.4-10.4); POSITIVE DIFF @See below; RED BLOOD COUNT 2.44 10^6/ul (4.70-6.10); RED CELL DISTRIBUTION WIDTH 16.8 % (11.5-14.5)
[2018-02-23 05:47] LABS: WHITE BLOOD COUNT 6.6 10^3/ul (4.8-10.8)
[2018-02-23 06:16] LABS: ANION GAP 15 (8-16); BLOOD UREA NITROGEN 43 mg/dl (7-20); CALCIUM 6.3 mg/dl (8.4-10.2); CARBON DIOXIDE 20 mmol/L (21-31); CHLORIDE 97 mmol/L (97-110); GLUCOSE 102 mg/dl (70-220); POTASSIUM 4.1 mmol/L (3.5-5.1); SODIUM 128 mmol/L (135-144)
[2018-02-23 06:26] LABS: ADD MAN DIFF? YES; PLATELET COUNT 36 10^3/UL (140-415)
[2018-02-23 06:58] LABS: PHOSPHORUS 5.3 mg/dl (2.5-4.9)
[2018-02-23 06:58] LABS: CREATININE 3.53 mg/dl (0.61-1.24); MAGNESIUM 1.9 mg/dl (1.7-2.5)
[2018-02-23 07:32] LABS: VANCOMYCIN,RANDOM 13.9 ug/ml
[2018-02-23 07:40] LABS: ANISOCYTOSIS 1+ (0-0); BAND NEUTROPHILS #M 0.9 10^3/ul (0.0-0.6); BAND NEUTROPHILS % (M) 15 % (0-4); BURR CELLS 1+ (0-0); EOSINOPHILS % (M) 1 % (0-7); LYMPHOCYTES #M 0.1 10^3/ul (0.8-2.9); LYMPHOCYTES % (M) 3 % (15-51); MONOCYTE #M 0.4 10^3/ul (0.3-0.9); MONOCYTES % (M) 7 % (0-11); PLATELET ESTIMATE DECREASED; POIKILOCYTOSIS 1+ (0-0); SEG NEUT #M 4.9 10^3/ul (1.6-7.5); SEGMENTED NEUTROPHILS (M) % 74 % (39-77); SMUDGE%M 3 % (0-0)
[2018-02-23] MEDS: SOD CHLORIDE 0.9% 250 ML IV* ×2 (08:47→09:04)
[2018-02-23] MEDS: SILVER SULFADIAZINE 1% 25 GM CR TOP (09:21)
[2018-02-23] MEDS: ASPIRIN 81 MG TAB PO (09:21)
[2018-02-23] MEDS: BALSAM PERU/CASTOR OIL 60 GM TUBE TOP ×2 (09:21→21:09)
[2018-02-23] MEDS: CEFEPIME HCL 0.5 GM in SOD CHLORIDE 0.9% 50 ML IVPB (09:22)
[2018-02-23] MEDS: VANCOMYCIN 1 GM 250 ML IVPB (09:22)
[2018-02-23] MEDS: COLLAGENASE 5 GM (UD JAR) TOP (09:28)
[2018-02-23] MEDS: INSULIN GLARGINE [LANTus] (100 UNITS/ML) SYG SC (09:34)
[2018-02-23] MEDS: PHENYLephrine 160 MG in DEXTROSE 5% 484 ML IV (10:07)
[2018-02-23 11:37] LABS: IMMEDIATE SPIN CROSSMATCH 1 2
[2018-02-23 15:24] LABS: TYPE AND SCREEN 1
[2018-02-23] MEDS: TAMSULOSIN (SR) 0.4 MG CAP PO (21:00)
[2018-02-23] MEDS: DEXTROSE 50% 50 ML SYRINGE IV (21:08)
[2018-02-23] MEDS: FAMOTIDINE 20 MG TAB NGT (21:09)
[2018-02-23] MEDS: ATORVASTATIN 80 MG TAB PO (21:09)
[2018-02-24] MEDS: VASOPRESSIN 60 UNIT in DEXTROSE 5% 57 ML IV ×2 (00:30→12:03)
[2018-02-24] MEDS: INSULIN ASPART [NOVOLOG] 3 ML PEN SC ×6 (01:00→21:00)
[2018-02-24] MEDS: ALBUTEROL HFA 8 GM INHALER INH ×4 (01:09→19:58)
[2018-02-24] MEDS: ACETYLCYSTEINE 20% 4 ML VIAL NEB ×4 (01:15→19:58)
[2018-02-24] MEDS: DEXTROSE 50% 50 ML SYRINGE IV ×3 (01:58→17:20)
[2018-02-24 05:38] LABS: ADD MAN DIFF? NO
[2018-02-24 05:47] LABS: WHITE BLOOD COUNT 6.7 10^3/ul (4.8-10.8)
[2018-02-24 05:47] LABS: ABNORMAL IP MESSAGE 1; BASOPHILS % 0.2 % (0.0-2.0); EOSINOPHILS # 0.1 10^3/ul (0.0-0.5); EOSINOPHILS % 0.9 % (0.0-7.0); HEMATOCRIT 24.7 % (42.0-52.0); LYMPHOCYTES # 0.2 10^3/ul (0.8-2.9); LYMPHOCYTES % 2.6 % (15.0-51.0); MEAN CORPUSCULAR HGB CONC 32.4 g/dl (32.0-37.0); MEAN CORPUSCULAR VOLUME 92.5 fl (82.0-101.0); MEAN PLATELET VOLUME 10.2 fl (7.4-10.4); MONOCYTE # 0.4 10^3/ul (0.3-0.9); MONOCYTES % 5.4 % (0.0-11.0); NEUTROPHILS % 89.4 % (39.0-77.0); PLATELET COUNT 59 10^3/UL (140-415); POSITIVE DIFF @See below; RED BLOOD COUNT 2.67 10^6/ul (4.70-6.10); RED CELL DISTRIBUTION WIDTH 16.8 % (11.5-14.5)
[2018-02-24 06:16] LABS: ANION GAP 14 (8-16); BLOOD UREA NITROGEN 49 mg/dl (7-20); CALCIUM 6.2 mg/dl (8.4-10.2); CARBON DIOXIDE 20 mmol/L (21-31); CHLORIDE 99 mmol/L (97-110); GLUCOSE 79 mg/dl (70-220); MAGNESIUM 1.9 mg/dl (1.7-2.5); PHOSPHORUS 5.2 mg/dl (2.5-4.9); POTASSIUM 3.9 mmol/L (3.5-5.1); SODIUM 129 mmol/L (135-144)
[2018-02-24 06:28] LABS: CREATININE 3.73 mg/dl (0.61-1.24)
[2018-02-24] MEDS: INSULIN GLARGINE [LANTus] (100 UNITS/ML) SYG SC (09:00)
[2018-02-24] MEDS: COLLAGENASE 5 GM (UD JAR) TOP (09:26)
[2018-02-24] MEDS: ASPIRIN 81 MG TAB PO (09:26)
[2018-02-24] MEDS: SILVER SULFADIAZINE 1% 25 GM CR TOP (09:27)
[2018-02-24] MEDS: BALSAM PERU/CASTOR OIL 60 GM TUBE TOP ×2 (09:27→21:21)
[2018-02-24] MEDS: CEFEPIME HCL 0.5 GM in SOD CHLORIDE 0.9% 50 ML IVPB (10:24)
[2018-02-24] MEDS: SOD CHLORIDE 0.9% 1,000 ML IV (14:30)
[2018-02-24] MEDS: TAMSULOSIN (SR) 0.4 MG CAP PO (21:00)
[2018-02-24] MEDS: ATORVASTATIN 80 MG TAB PO (21:21)
[2018-02-24] MEDS: FAMOTIDINE 20 MG TAB NGT (21:21)
[2018-02-24] MEDS: NORepinephrine 32 MG in DEXTROSE 5% 218 ML IV (23:49)
[2018-02-25] MEDS: VASOPRESSIN 60 UNIT in DEXTROSE 5% 57 ML IV ×2 (00:30→12:30)
[2018-02-25] MEDS: INSULIN ASPART [NOVOLOG] 3 ML PEN SC ×6 (01:00→21:00)
[2018-02-25] MEDS: ACETYLCYSTEINE 20% 4 ML VIAL NEB ×4 (01:24→21:11)
[2018-02-25] MEDS: ALBUTEROL HFA 8 GM INHALER INH ×3 (01:24→21:10)
[2018-02-25 05:10] LABS: ADD MAN DIFF? NO
[2018-02-25] MEDS: DEXTROSE 50% 50 ML SYRINGE IV (05:10)
[2018-02-25 05:12] LABS: WHITE BLOOD COUNT 7.1 10^3/ul (4.8-10.8)
[2018-02-25 05:12] LABS: ABNORMAL IP MESSAGE 1; BASOPHILS % 0.3 % (0.0-2.0); EOSINOPHILS # 0.1 10^3/ul (0.0-0.5); EOSINOPHILS % 0.7 % (0.0-7.0); HEMATOCRIT 26.2 % (42.0-52.0); HEMOGLOBIN 8.3 g/dl (14.0-18.0); LYMPHOCYTES # 0.3 10^3/ul (0.8-2.9); LYMPHOCYTES % 4.2 % (15.0-51.0); MEAN CORPUSCULAR HEMOGLOBIN 29.4 pg (29.0-33.0); MEAN CORPUSCULAR HGB CONC 31.7 g/dl (32.0-37.0); MEAN CORPUSCULAR VOLUME 92.9 fl (82.0-101.0); MONOCYTE # 0.5 10^3/ul (0.3-0.9); MONOCYTES % 6.3 % (0.0-11.0); NEUTROPHIL # 6.2 10^3/ul (1.6-7.5); NEUTROPHILS % 86.8 % (39.0-77.0); PLATELET COUNT 51 10^3/UL (140-415); POSITIVE DIFF @See below; RED BLOOD COUNT 2.82 10^6/ul (4.70-6.10); RED CELL DISTRIBUTION WIDTH 17.2 % (11.5-14.5)
[2018-02-25 05:37] LABS: ANION GAP 13 (8-16); BLOOD UREA NITROGEN 56 mg/dl (7-20); CALCIUM 6.2 mg/dl (8.4-10.2); CARBON DIOXIDE 20 mmol/L (21-31); CHLORIDE 100 mmol/L (97-110); GLUCOSE 71 mg/dl (70-220); PHOSPHORUS 5.5 mg/dl (2.5-4.9); POTASSIUM 3.8 mmol/L (3.5-5.1); SODIUM 129 mmol/L (135-144)
[2018-02-25 05:43] LABS: CREATININE 3.83 mg/dl (0.61-1.24)
[2018-02-25] MEDS: CEFEPIME HCL 0.5 GM in SOD CHLORIDE 0.9% 50 ML IVPB (08:58)
[2018-02-25] MEDS: ASPIRIN 81 MG TAB PO (08:58)
[2018-02-25] MEDS: SILVER SULFADIAZINE 1% 25 GM CR TOP (08:59)
[2018-02-25] MEDS: BALSAM PERU/CASTOR OIL 60 GM TUBE TOP ×2 (08:59→21:49)
[2018-02-25] MEDS: INSULIN GLARGINE [LANTus] (100 UNITS/ML) SYG SC (09:00)
[2018-02-25] MEDS: COLLAGENASE 5 GM (UD JAR) TOP (09:38)
[2018-02-25] MEDS: DEXTROSE 5%-0.9% NACL 1,000 ML IV (11:22)
[2018-02-25] MEDS: SOD CHLORIDE 0.9% 1,000 ML IV (14:30)
[2018-02-25] MEDS: NORepinephrine 32 MG in DEXTROSE 5% 218 ML IV (20:32)
[2018-02-25] MEDS: PHENYLephrine 160 MG in DEXTROSE 5% 484 ML IV (20:40)
[2018-02-25] MEDS: TAMSULOSIN (SR) 0.4 MG CAP PO (21:00)
[2018-02-25] MEDS: ATORVASTATIN 80 MG TAB PO (23:08)
[2018-02-25] MEDS: FAMOTIDINE 20 MG TAB NGT (23:08)
[2018-02-26] MEDS: VASOPRESSIN 60 UNIT in DEXTROSE 5% 57 ML IV ×2 (00:30→12:30)
[2018-02-26] MEDS: INSULIN ASPART [NOVOLOG] 3 ML PEN SC ×6 (01:00→21:03)
[2018-02-26] MEDS: ALBUTEROL HFA 8 GM INHALER INH ×4 (01:24→20:49)
[2018-02-26] MEDS: ACETYLCYSTEINE 20% 4 ML VIAL NEB ×4 (01:24→20:50)
[2018-02-26 05:33] LABS: ADD MAN DIFF? NO
[2018-02-26 05:45] LABS: WHITE BLOOD COUNT 6.8 10^3/ul (4.8-10.8)
[2018-02-26 05:45] LABS: ABNORMAL IP MESSAGE 1; BASOPHILS % 0.3 % (0.0-2.0); EOSINOPHILS % 0.4 % (0.0-7.0); HEMATOCRIT 27.1 % (42.0-52.0); HEMOGLOBIN 8.8 g/dl (14.0-18.0); LYMPHOCYTES # 0.4 10^3/ul (0.8-2.9); LYMPHOCYTES % 5.7 % (15.0-51.0); MEAN CORPUSCULAR HEMOGLOBIN 30.1 pg (29.0-33.0); MEAN CORPUSCULAR HGB CONC 32.5 g/dl (32.0-37.0); MEAN CORPUSCULAR VOLUME 92.8 fl (82.0-101.0); MEAN PLATELET VOLUME 11.1 fl (7.4-10.4); MONOCYTE # 0.7 10^3/ul (0.3-0.9); MONOCYTES % 9.5 % (0.0-11.0); NEUTROPHIL # 5.6 10^3/ul (1.6-7.5); NEUTROPHILS % 81.8 % (39.0-77.0); PLATELET COUNT 36 10^3/UL (140-415); POSITIVE DIFF @See below; RED BLOOD COUNT 2.92 10^6/ul (4.70-6.10); RED CELL DISTRIBUTION WIDTH 17.3 % (11.5-14.5)
[2018-02-26 06:35] LABS: ANION GAP 12 (8-16); BLOOD UREA NITROGEN 45 mg/dl (7-20); CALCIUM 6.5 mg/dl (8.4-10.2); CARBON DIOXIDE 22 mmol/L (21-31); CHLORIDE 100 mmol/L (97-110); CREATININE 3.43 mg/dl (0.61-1.24); GLUCOSE 111 mg/dl (70-220); PHOSPHORUS 4.6 mg/dl (2.5-4.9); POTASSIUM 3.7 mmol/L (3.5-5.1); SODIUM 130 mmol/L (135-144)
[2018-02-26] MEDS: ASPIRIN 81 MG TAB PO (08:22)
[2018-02-26] MEDS: CEFEPIME HCL 0.5 GM in SOD CHLORIDE 0.9% 50 ML IVPB (08:22)
[2018-02-26] MEDS: BALSAM PERU/CASTOR OIL 60 GM TUBE TOP ×2 (08:23→21:05)
[2018-02-26] MEDS: SILVER SULFADIAZINE 1% 25 GM CR TOP (08:23)
[2018-02-26] MEDS: COLLAGENASE 5 GM (UD JAR) TOP (09:00)
[2018-02-26] MEDS: NORepinephrine 32 MG in DEXTROSE 5% 218 ML IV (11:03)
[2018-02-26] MEDS: DEXTROSE 5%-0.9% NACL 1,000 ML IV ×2 (12:11→13:48)
[2018-02-26] MEDS: SOD CHLORIDE 0.9% 1,000 ML IV (14:30)
[2018-02-26] MEDS: TAMSULOSIN (SR) 0.4 MG CAP PO (20:57)
[2018-02-26] MEDS: ATORVASTATIN 80 MG TAB PO (20:57)
[2018-02-26] MEDS: FAMOTIDINE 20 MG TAB NGT (20:57)
[2018-02-27] MEDS: VASOPRESSIN 60 UNIT in DEXTROSE 5% 57 ML IV ×2 (00:30→12:30)
[2018-02-27] MEDS: INSULIN ASPART [NOVOLOG] 3 ML PEN SC ×6 (01:44→21:28)
[2018-02-27] MEDS: ACETYLCYSTEINE 20% 4 ML VIAL NEB ×2 (01:56→07:55)
[2018-02-27] MEDS: ALBUTEROL HFA 8 GM INHALER INH ×4 (01:56→20:44)
[2018-02-27] MEDS: NORepinephrine 32 MG in DEXTROSE 5% 218 ML IV ×2 (04:45→23:40)
[2018-02-27 05:10] LABS: ADD MAN DIFF? NO
[2018-02-27 05:32] LABS: ABNORMAL IP MESSAGE 1; BASOPHILS % 0.3 % (0.0-2.0); EOSINOPHILS % 0.4 % (0.0-7.0); HEMATOCRIT 25.5 % (42.0-52.0); HEMOGLOBIN 8.1 g/dl (14.0-18.0); LYMPHOCYTES # 0.7 10^3/ul (0.8-2.9); LYMPHOCYTES % 8.7 % (15.0-51.0); MEAN CORPUSCULAR HEMOGLOBIN 30.3 pg (29.0-33.0); MEAN CORPUSCULAR HGB CONC 31.8 g/dl (32.0-37.0); MEAN CORPUSCULAR VOLUME 95.5 fl (82.0-101.0); MEAN PLATELET VOLUME 10.5 fl (7.4-10.4); MONOCYTE # 0.9 10^3/ul (0.3-0.9); MONOCYTES % 11.9 % (0.0-11.0); NEUTROPHIL # 5.9 10^3/ul (1.6-7.5); NEUTROPHILS % 76.9 % (39.0-77.0); POSITIVE DIFF @See below; RED BLOOD COUNT 2.67 10^6/ul (4.70-6.10); RED CELL DISTRIBUTION WIDTH 17.5 % (11.5-14.5)
[2018-02-27 05:32] LABS: WHITE BLOOD COUNT 7.7 10^3/ul (4.8-10.8)
[2018-02-27 06:03] LABS: ANION GAP 12 (8-16); BLOOD UREA NITROGEN 57 mg/dl (7-20); CALCIUM 6.7 mg/dl (8.4-10.2); CARBON DIOXIDE 22 mmol/L (21-31); CHLORIDE 101 mmol/L (97-110); GLUCOSE 155 mg/dl (70-220); MAGNESIUM 2.1 mg/dl (1.7-2.5); PHOSPHORUS 5.6 mg/dl (2.5-4.9); POTASSIUM 4.1 mmol/L (3.5-5.1); SODIUM 131 mmol/L (135-144)
[2018-02-27 06:16] LABS: PLATELET COUNT 35 10^3/UL (140-415)
[2018-02-27 06:53] LABS: CREATININE 3.67 mg/dl (0.61-1.24)
[2018-02-27] MEDS: ASPIRIN 81 MG TAB PO (09:10)
[2018-02-27] MEDS: BALSAM PERU/CASTOR OIL 60 GM TUBE TOP ×2 (09:10→21:17)
[2018-02-27] MEDS: CEFEPIME HCL 0.5 GM in SOD CHLORIDE 0.9% 50 ML IVPB (09:10)
[2018-02-27] MEDS: COLLAGENASE 5 GM (UD JAR) TOP (09:11)
[2018-02-27] MEDS: SILVER SULFADIAZINE 1% 25 GM CR TOP (09:11)
[2018-02-27] MEDS: PHENYLephrine 160 MG in DEXTROSE 5% 484 ML IV ×2 (09:16→23:41)
[2018-02-27] MEDS: VANCOMYCIN 1 GM 250 ML IVPB (10:57)
[2018-02-27] MEDS: SOD CHLORIDE 0.9% 1,000 ML IV (13:31)
[2018-02-27 17:12] LABS: TYPE AND SCREEN 1
[2018-02-27] MEDS: SOD CHLORIDE 0.9% 250 ML IV* (17:20)
[2018-02-27] MEDS: TAMSULOSIN (SR) 0.4 MG CAP PO (21:00)
[2018-02-27] MEDS: ALBUMIN HUMAN 25% 100 ML IV (21:38)
[2018-02-27] MEDS: HEPARIN 1000 UNITS/ML 10 ML INJ CATHETER (22:47)
[2018-02-27] MEDS: ATORVASTATIN 80 MG TAB PO (23:39)
[2018-02-27] MEDS: FAMOTIDINE 20 MG TAB NGT (23:39)
[2018-02-28] MEDS: VASOPRESSIN 60 UNIT in DEXTROSE 5% 57 ML IV ×2 (00:30→12:08)
[2018-02-28] MEDS: INSULIN ASPART [NOVOLOG] 3 ML PEN SC ×6 (01:12→21:00)
[2018-02-28 05:28] LABS: ADD MAN DIFF? NO
[2018-02-28 05:39] LABS: WHITE BLOOD COUNT 6.9 10^3/ul (4.8-10.8)
[2018-02-28 05:39] LABS: ABNORMAL IP MESSAGE 1; BASOPHILS % 0.3 % (0.0-2.0); EOSINOPHILS # 0.1 10^3/ul (0.0-0.5); EOSINOPHILS % 0.7 % (0.0-7.0); HEMATOCRIT 23.2 % (42.0-52.0); HEMOGLOBIN 7.4 g/dl (14.0-18.0); LYMPHOCYTES # 0.4 10^3/ul (0.8-2.9); LYMPHOCYTES % 5.5 % (15.0-51.0); MEAN CORPUSCULAR HEMOGLOBIN 30.7 pg (29.0-33.0); MEAN CORPUSCULAR HGB CONC 31.9 g/dl (32.0-37.0); MEAN CORPUSCULAR VOLUME 96.3 fl (82.0-101.0); MEAN PLATELET VOLUME 10.9 fl (7.4-10.4); MONOCYTES % 13.7 % (0.0-11.0); NEUTROPHIL # 5.4 10^3/ul (1.6-7.5); NEUTROPHILS % 78.4 % (39.0-77.0); PLATELET COUNT 60 10^3/UL (140-415); POSITIVE DIFF @See below; RED BLOOD COUNT 2.41 10^6/ul (4.70-6.10); RED CELL DISTRIBUTION WIDTH 17.4 % (11.5-14.5)
[2018-02-28 05:54] LABS: ANION GAP 12 (8-16); BLOOD UREA NITROGEN 41 mg/dl (7-20); CALCIUM 7.3 mg/dl (8.4-10.2); CARBON DIOXIDE 25 mmol/L (21-31); CHLORIDE 101 mmol/L (97-110); CREATININE 2.75 mg/dl (0.61-1.24); GLUCOSE 166 mg/dl (70-220); PHOSPHORUS 4.6 mg/dl (2.5-4.9); POTASSIUM 3.7 mmol/L (3.5-5.1); SODIUM 134 mmol/L (135-144)
[2018-02-28] MEDS: DEXTROSE 5%-0.9% NACL 1,000 ML IV (07:08)
[2018-02-28] MEDS: ASPIRIN 81 MG TAB PO (08:27)
[2018-02-28] MEDS: CEFEPIME HCL 0.5 GM in SOD CHLORIDE 0.9% 50 ML IVPB (08:27)
[2018-02-28] MEDS: BALSAM PERU/CASTOR OIL 60 GM TUBE TOP ×2 (08:33→21:20)
[2018-02-28] MEDS: SILVER SULFADIAZINE 1% 25 GM CR TOP (08:33)
[2018-02-28] MEDS: COLLAGENASE 5 GM (UD JAR) TOP (08:33)
[2018-02-28] MEDS: SOD CHLORIDE 0.9% 1,000 ML IV (14:30)
[2018-02-28] MEDS: NORepinephrine 32 MG in DEXTROSE 5% 218 ML IV (15:07)
[2018-02-28] MEDS: TAMSULOSIN (SR) 0.4 MG CAP PO (21:00)
[2018-02-28] MEDS: ATORVASTATIN 80 MG TAB PO (21:20)
[2018-02-28] MEDS: FAMOTIDINE 20 MG TAB NGT (21:20)
[2018-03-01] MEDS: VASOPRESSIN 60 UNIT in DEXTROSE 5% 57 ML IV ×2 (00:30→12:30)
[2018-03-01] MEDS: INSULIN ASPART [NOVOLOG] 3 ML PEN SC ×4 (01:00→13:00)
[2018-03-01 05:16] LABS: WHITE BLOOD COUNT 7.5 10^3/ul (4.8-10.8)
[2018-03-01 05:16] LABS: ABNORMAL IP MESSAGE 1; HEMATOCRIT 22.1 % (42.0-52.0); MEAN CORPUSCULAR HGB CONC 30.3 g/dl (32.0-37.0); MEAN CORPUSCULAR VOLUME 95.7 fl (82.0-101.0); MEAN PLATELET VOLUME 11.4 fl (7.4-10.4); PLATELET COUNT 41 10^3/UL (140-415); POSITIVE DIFF @See below; RED BLOOD COUNT 2.31 10^6/ul (4.70-6.10); RED CELL DISTRIBUTION WIDTH 17.6 % (11.5-14.5)
[2018-03-01 05:21] LABS: ADD MAN DIFF? YES
[2018-03-01 05:22] LABS: HEMOGLOBIN 6.7 g/dl (14.0-18.0)
[2018-03-01 05:36] LABS: ANION GAP 10 (8-16); BLOOD UREA NITROGEN 53 mg/dl (7-20); CALCIUM 7.6 mg/dl (8.4-10.2); CARBON DIOXIDE 25 mmol/L (21-31); CHLORIDE 103 mmol/L (97-110); CREATININE 3.31 mg/dl (0.61-1.24); GLUCOSE 111 mg/dl (70-220); MAGNESIUM 2.1 mg/dl (1.7-2.5); PHOSPHORUS 5.3 mg/dl (2.5-4.9); SODIUM 134 mmol/L (135-144)
[2018-03-01 07:11] LABS: AADO2 Arterial 596.8 mmHg (7.0-24.0); Allen Test ACCEPTAB; Arterial Base Excess -3.3 mmol/L (-3.0-3); Arterial Blood Gas Oxygen Sat 91.9 mmHG (95.0-98.0); Arterial COHb 0.3 % (0.0-3.0); Arterial Fraction of Oxyhgb 91.5 % (93.0-99.0); Arterial HCO3 23.1 mmol/L (22.0-26.0); Arterial MetHb 0.1 % (0.0-1.5); Arterial Total Hemglobin 9.2 g/dl (12.0-18.0); Arterial pCO2 47.5 mmhg (35-45); MODE VENT - AC; Site Right Radial
[2018-03-01] MEDS: PHENYLephrine 160 MG in DEXTROSE 5% 484 ML IV ×2 (08:00→14:56)
[2018-03-01] MEDS: SILVER SULFADIAZINE 1% 25 GM CR TOP (08:26)
[2018-03-01] MEDS: ASPIRIN 81 MG TAB PO (08:26)
[2018-03-01] MEDS: COLLAGENASE 5 GM (UD JAR) TOP (08:26)
[2018-03-01] MEDS: CEFEPIME HCL 0.5 GM in SOD CHLORIDE 0.9% 50 ML IVPB (08:29)
[2018-03-01] MEDS: BALSAM PERU/CASTOR OIL 60 GM TUBE TOP (09:28)
[2018-03-01 09:44] LABS: ANISOCYTOSIS 1+ (0-0); MONOCYTE #M 0.4 10^3/ul (0.3-0.9); MONOCYTES % (M) 6 % (0-11); PLATELET ESTIMATE NORMAL; REACTIVE LYMPHOCYTES% (M) 1 % (0-0)
[2018-03-01 10:29] LABS: EOSINOPHILS % (M) 1 % (0-7); GIANT THROMBO% (M) 1 % (0-0); METAMYELOCYTES %M 1 % (0-0); MYELOCYTES % (M) 1 % (0-0); POLYCHROMASIA 1+ (0-0)
[2018-03-01] MEDS: SOD CHLORIDE 0.9% 250 ML IV* (10:50)
[2018-03-01 11:11] LABS: IMMEDIATE SPIN CROSSMATCH 1 1
[2018-03-01 11:30] LABS: BAND NEUTROPHILS #M 0.3 10^3/ul (0.0-0.6); BAND NEUTROPHILS % (M) 4 % (0-4); LYMPHOCYTES #M 0.6 10^3/ul (0.8-2.9); LYMPHOCYTES % (M) 8 % (15-51); SEG NEUT #M 6.2 10^3/ul (1.6-7.5); SEGMENTED NEUTROPHILS (M) % 82 % (39-77); SMUDGE%M 15 % (0-0)
[2018-03-01] MEDS: ALBUMIN HUMAN 25% 100 ML IV (13:05)
[2018-03-01] MEDS: HEPARIN 1000 UNITS/ML 10 ML INJ CATHETER (14:41)
[2018-03-01] MEDS: NORepinephrine 32 MG in DEXTROSE 5% 218 ML IV (15:00)
[2018-03-01] MEDS ORDERED: ARTIFICIAL TEARS 15 ML OPH BOTH EYES (16:00)
[2018-03-01] MEDS ORDERED: DIMETHICONE STICK TOP (16:00)
[2018-03-01] MEDS ORDERED: LORAZEPAM 2 MG INJ IV (16:00)
[2018-03-01] MEDS ORDERED: HALOPERIDOL 5 MG INJ IM (16:00)
[2018-03-01] MEDS: morphine (DRIP) 100 MG/100 ML 100 ML IV (16:22)
== END 2018-03-01 16:57 | disposition expired | DRG 870 ==
LOC: ICU 02-16 17:29 → E/R 11:13 → ICU 02-16 14:37
PROC: 0DH68UZ Insertion of Feeding Device into Stomach, Via Natural or Artificial Opening Endoscopic (ICD-10-PCS; 2018-02-16 18:00)
PROC: 06HY33Z Insertion of Infusion Device into Lower Vein, Percutaneous Approach (ICD-10-PCS; principal; 2018-02-16 19:04)
PROC: 5A1955Z Respiratory Ventilation, Greater than 96 Consecutive Hours (ICD-10-PCS; 2018-02-16 19:04)
PROC: 0BH17EZ Insertion of Endotracheal Airway into Trachea, Via Natural or Artificial Opening (ICD-10-PCS; 2018-02-16 19:04)
PROC: 5A1D70Z Performance of Urinary Filtration, Intermittent, Less than 6 Hours Per Day (ICD-10-PCS; 2018-02-16 19:04)
PROC: 06HY33Z Insertion of Infusion Device into Lower Vein, Percutaneous Approach (ICD-10-PCS; 2018-02-16 19:04)
PROC: 30233N1 Transfusion of Nonautologous Red Blood Cells into Peripheral Vein, Percutaneous Approach (ICD-10-PCS; 2018-02-16 19:04)
DX: A41.9 Sepsis, unspecified organism (principal); R65.21 Severe sepsis with septic shock; J18.9 Pneumonia, unspecified organism; G92 Toxic encephalopathy; L89.153 Pressure ulcer of sacral region, stage 3; I62.01 Nontraumatic acute subdural hemorrhage; J96.01 Acute respiratory failure with hypoxia; E87.0 Hyperosmolality and hypernatremia; E87.4 Mixed disorder of acid-base balance; I82.402 Acute embolism and thrombosis of unspecified deep veins of left lower extremity; E11.51 Type 2 diabetes mellitus with diabetic peripheral angiopathy without gangrene; G20 Parkinson's disease; E87.5 Hyperkalemia; E83.52 Hypercalcemia; D64.9 Anemia, unspecified; I12.9 Hypertensive chronic kidney disease with stage 1 through stage 4 chronic kidney disease, or unspecified chronic kidney disease; E11.22 Type 2 diabetes mellitus with diabetic chronic kidney disease; N18.9 Chronic kidney disease, unspecified; E11.649 Type 2 diabetes mellitus with hypoglycemia without coma; N50.89 Other specified disorders of the male genital organs; D69.6 Thrombocytopenia, unspecified; E87.70 Fluid overload, unspecified; Z66 Do not resuscitate; Z89.612 Acquired absence of left leg above knee
CPT/HCPCS: 31500; 36415; 36430; 36600; 70450; 71045; 71250; 72170; 74018; 76775; 80048; 80053; 80202; 81001; 82043; 82150; 82306; 82533; 82607; 82652; 82746; 82803; 82962; 83010; 83036; 83540; 83605; 83615; 83690; 83735; 83935; 83970; 84100; 84133; 84155; 84165; 84300; 84443; 84484; 85014; 85018; 85025; 85045; 85610; 85730; 86078; 86140; 86706; 86850; 86900; 86901; 86920; 87040; 87070; 87081; 87086; 87340; 89220; 90935; 93005; 93306; 94002; 94003; 94640; 94664; 94667; 94668; 94770; 96374; 96375; 99291-25